=== PATIENT | female | born 1955 | race Caucasian/White ===

== ENCOUNTER 2021-07-13 09:59 | Outpatient (CLI) | payer OTHER ==
[~2021-07-13 09:59] MED LIST: Iopamidol-370 76% 500 ML 1 ML ONE
== END 2021-07-13 10:00 | disposition home or self-care (01) ==
LOC: BICCT 09:59
PROVIDERS: ATTEND Internal Medicine
DX: R31.9 Hematuria, unspecified (principal); N20.0 Calculus of kidney; N28.1 Cyst of kidney, acquired; K76.89 Other specified diseases of liver
CPT/HCPCS: 74170; 82565

== ENCOUNTER 2021-11-11 09:44 | Outpatient (CLI) | payer OTHER | END 2021-11-11 09:45 | disposition home or self-care (01) | LOC: BICCT 09:44 | PROVIDERS: ATTEND Internal Medicine | DX: R31.9 Hematuria, unspecified (principal); N28.1 Cyst of kidney, acquired; K76.89 Other specified diseases of liver; N28.89 Other specified disorders of kidney and ureter | CPT/HCPCS: 74178; 82565; Q9967 ==